=== PATIENT | female | born 1960 | race Caucasian/White ===

== ENCOUNTER → 2016-09-22 | Outpatient (CLI) | payer OTHER ==
[~2016-09-22] MED LIST: CONTRAST GIVEN MC PRN; IOHEXOL 300 MG/ML 75 ML VIAL IV ONE
[2016-09-22 12:29] LABS: CREATININE 1.1 mg/dL (0.6-1.0); GFR 51.2
--- NOTE | 2016-09-22 14:34 | RAD ---
Indication hematuria. Urinary frequency and incontinence. Multiphase imaging through the abdomen and pelvis was performed. Initially a noncontrast examination of the abdomen and pelvis was performed. Subsequently portal venous phase imaging through the abdomen was performed and finally delayed images through the abdomen and pelvis (CT urogram). MIP images were generated and reviewed. 60 cc of Omnipaque 300 was administered intravenously. On the initial noncontrast images the adrenal glands appear unremarkable. No renal calculi are seen. There is no hydronephrosis on either side. There is no hydroureter or calcification seen along the course of either ureter. The portal venous phase images are essentially unremarkable. No renal mass is seen. Several parapelvic cysts are seen associated with both kidneys. The delayed images show no additional finding. Parapelvic cysts are again seen. The ureters appear normal. The bladder is incompletely distended but grossly normal. The lung bases are clear. The liver and spleen appear unremarkable. No pancreatic abnormality is seen. No acute finding is seen in the abdomen. No acute or significant finding is seen in the pelvis. There are degenerative changes in the lumbar spine. Postoperative changes with associated mesh are seen involving the ventral abdominal wall. IMPRESSION: No acute finding seen in the abdomen or pelvis. Parapelvic cysts otherwise essentially unremarkable kidneys. Unremarkable ureters. Incompletely distended urinary bladder. No gross abnormality seen PQRS Compliance Statement: One or more of the following individualized dose reduction techniques were utilized for this examination: 1. Automated exposure control 2. Adjustment of the mA and/or kV according to patient size 3. Use of iterative reconstruction technique
== END | disposition home or self-care (01) ==
LOC: CT 12:10
PROVIDERS: ATTEND Urology
DX: R31.9 Hematuria, unspecified (principal); N39.41 Urge incontinence
CPT/HCPCS: 36415; 74178; 82565; Q9967

== ENCOUNTER → 2018-02-14 | Outpatient (CLI) | payer OTHER ==
--- NOTE | 2018-02-14 15:07 | RAD ---
DATE: 02/14/2018 EXAM: DIGITAL SCREEN BILAT W/CAD HISTORY: Routine screening COMPARISON: None available This study was interpreted with the benefit of Computerized Aided Detection (CAD). Breast Density: SCATTERED The breast parenchyma shows scattered fibroglandular densities. Breast parenchyma level B. FINDINGS: No suspicious breast densities are seen. Minimal benign type calcifications are noted. No suspicious microcalcifications are identified. IMPRESSION: There is no mammographic evidence of malignancy in either breast. BI-RADS CATEGORY: 2 BENIGN FINDING(S) RECOMMENDED FOLLOW-UP: 12M 12 MONTH FOLLOW-UP PQRS compliance statement: Patient information was entered into a reminder system with a target due date for the next mammogram. Mammography is a sensitive method for finding small breast cancers, but it does not detect them all and is not a substitute for careful clinical examination. A negative mammogram does not negate a clinically suspicious finding and should not result in delay in biopsying a clinically suspicious abnormality. "Our facility is accredited by the [employer] Mammography Program."
== END | disposition home or self-care (01) ==
LOC: MAMMO 14:02
PROVIDERS: ATTEND Family Medicine
DX: Z12.31 Encounter for screening mammogram for malignant neoplasm of breast (principal)
CPT/HCPCS: 77067

== ENCOUNTER 2018-03-27 19:06 | Emergency (ER) | payer OTHER ==
[~2018-03-27] VITALS: Ht 154.9 cm; Wt 127.0 kg
[2018-03-27] MEDS ORDERED: MELO7.5T5 PO (20:10)
--- NOTE | 2018-03-27 20:10 | PHYS DOC ---
Past Medical History Past Medical History: Bronchitis, COPD, Hypertension Past Surgical History: Appendectomy, Cholecystectomy, Tonsillectomy Additional Past Surgical Histo: BOWEL SX, CARPAL TUNNEL Alcohol Use: None Drug Use: None Adult General Chief Complaint Chief Complaint: LOWER EXT PAIN [facility] HPI Patient is a 58 year old female who presents with right knee pain. The patient denies injury. The patient states that she has a shower chair and did tip forward on the shower chair couple of days ago but denies falling. She states that she has chronic knee pain. She does walk with a cane. She states that this pain is just more increased than normal. Review of Systems Review of Systems Constitutional: Denies fever or chills [] Respiratory: Denies cough or shortness of breath [] Cardiovascular: No additional information not addressed in HPI [] GI: Denies abdominal pain, nausea, vomiting, bloody stools or diarrhea [] : Denies dysuria or hematuria [] Musculoskeletal: See history of present illness Integument: Denies rash or skin lesions [] Neurologic: Denies headache, focal weakness or sensory changes [] Endocrine: Denies polyuria or polydipsia [] All other systems were reviewed and found to be within normal limits, except as documented in this note. Allergies Allergies Allergies Coded Allergies Type Severity Reaction Last Updated Verified metronidazole Allergy Intermediate 09/22/16 Yes Physical Exam Physical Exam Constitutional: Well developed, well nourished, no acute distress, non-toxic appearance. [] Cardiovascular:Heart rate regular rhythm, no murmur [] Lungs & Thorax: Bilateral breath sounds clear to auscultation [] Abdomen: Bowel sounds normal, soft, no tenderness, no masses, no pulsatile masses. [] Skin: Warm, dry, no erythema, no rash. [] Back: No tenderness, no CVA tenderness. [] Extremities: right knee tenderness to palpation, no cyanosis, no clubbing, ROM intact, no edema or ecchymosis, pulses and sensation are intact distal to injury. [] Neurologic: Alert and oriented X 3, normal motor function, normal sensory function, no focal deficits noted. [] Psychologic: Affect normal, judgement normal, mood normal. [] Current Patient Data Vital Signs Vital Signs Date Time Temp Pulse Resp B/P (MAP) Pulse Ox O2 Delivery O2 Flow Rate FiO2 03/27/18 21:13 88 149/79 (102) 97 Room Air 03/27/18 19:06 97.9 18 97.9 EKG EKG [] Radiology/Procedures Radiology/Procedures [] PATIENT: LISHA HERR ACCOUNT: [id number] : 1960 LOCATION: ER AGE: 58 SEX: F EXAM STATUS: REG ER ORD. PHYSICIAN: ARABELLA SCHUSTER APRN REASON: pain x 1 day PROCEDURE: KNEE RIGHT 3V 3 views right knee dated 03/27/2018. No comparison available. Clinical data indication: Pain for week recent fall. FINDINGS: 3 views right knee show normal bony alignment. No displaced fracture. No acute osseous or articular abnormality. Moderate tricompartmental hypertrophic change with asymmetric medial joint space narrowing. No joint effusion or loose body. IMPRESSION: 1. No acute radiographic abnormality. 2. Moderate tricompartmental DJD. Electronically signed by: Toni Elizabeth MD (03/27/2018 8:31 PM) [facility] DICTATED and SIGNED BY: TONI ELIZABETH MD DATE: 03/27/182023 Course & Med Decision Making Course & Med Decision Making Pertinent Labs and Imaging studies reviewed. (See chart for details) [] Renae Disclaimer Renae Disclaimer This electronic medical record was generated, in whole or in part, using a voice recognition dictation system. Departure Departure Impression: Primary Impression: Osteoarthritis Disposition: 01 HOME, SELF-CARE Condition: STABLE Referrals: JANAY LORA MD (PCP) Patient Instructions: Osteoarthritis Additional Instructions: Take the medication with food. Follow-up with your primary care provider for recheck in 3 days if not improving or for possible referral to orthopedics. Scripts Meloxicam (MOBIC) 7.5 Mg Tablet 1 TAB PO DAILY for pain, #15 TAB 1 Refill Prov: ARABELLA SCHUSTER APRN 03/27/18 ARABELLA SCHUSTER APRN Mar 27, 2018 20:10
--- NOTE | 2018-03-27 20:34 | RAD ---
3 views right knee dated 03/27/2018. No comparison available. Clinical data indication: Pain for week recent fall. FINDINGS: 3 views right knee show normal bony alignment. No displaced fracture. No acute osseous or articular abnormality. Moderate tricompartmental hypertrophic change with asymmetric medial joint space narrowing. No joint effusion or loose body. IMPRESSION: 1. No acute radiographic abnormality. 2. Moderate tricompartmental DJD. Electronically signed by: Toni Elizabeth MD (03/27/2018 8:31 PM) [facility]
[2018-03-27 21:13] VITALS: BP 149/79
== END 2018-03-27 21:16 | disposition home or self-care (01) ==
LOC: ER 19:06
DX: M17.11 Unilateral primary osteoarthritis, right knee (principal); G89.29 Other chronic pain; J44.9 Chronic obstructive pulmonary disease, unspecified; I10 Essential (primary) hypertension; Z88.8 Allergy status to other drugs, medicaments and biological substances
CPT/HCPCS: 73562; 99284

== ENCOUNTER 2018-04-06 01:39 | Emergency (ER) | payer OTHER ==
[~2018-04-06] VITALS: Ht 152.4 cm; Wt 127.0 kg
[~2018-04-06 01:39] MED LIST changes: -CONTRAST GIVEN MC PRN; -IOHEXOL 300 MG/ML 75 ML VIAL IV ONE; +MELO7.5T5 PO
[2018-04-06 02:06] LABS: BASO # 0.1 x10^3/uL (0.0-0.2); BASO % 1 % (0-3); EOS # 0.1 x10^3/uL (0.0-0.7); EOS % 1 % (0-3); HEMATOCRIT 36.5 % (36.0-47.0); HEMOGLOBIN 12.5 g/dL (12.0-15.5); LYMPH # 1.6 x10^3/uL (1.0-4.8); LYMPH % 14 % (24-48); MEAN CORPUSCULAR HEMOGLOBIN 30 pg (25-35); MEAN CORPUSCULAR HGB CONC 34 g/dL (31-37); MEAN CORPUSCULAR VOLUME 86 fL (79-100); MONO # 0.5 x10^3/uL (0.0-1.1); MONO % 4 % (0-9); NEUT # 8.7 x10^3uL (1.8-7.7); NEUT % 80 % (31-73); PLATELET COUNT 235 x10^3/uL (140-400); RED BLOOD COUNT 4.23 x10^6/uL (3.50-5.40); RED CELL DISTRIBUTION WIDTH 14.3 % (11.5-14.5); WHITE BLOOD COUNT 10.9 x10^3/uL (4.0-11.0)
[2018-04-06 02:19] LABS: BILIRUBIN,URINE SMALL (NEG); CLARITY,URINE CLEAR; COLOR,URINE AMBER; NITRITE,URINE NEGATIVE (NEG); PROTEIN,URINE >=300 mg/dL (NEG-TRACE)
[2018-04-06 02:21] LABS: CALCIUM 9.4 mg/dL (8.5-10.1); CREATININE 1.4 mg/dL (0.6-1.0); GFR 38.5; POTASSIUM 3.7 mmol/L (3.5-5.1)
[2018-04-06 02:24] LABS: BACTERIA,URINE MANY /HPF (0-FEW); SQUAMOUS EPITHELIAL CELL,UR MOD /LPF
[2018-04-06 02:26] LABS: ALBUMIN 3.6 g/dL (3.4-5.0); ALBUMIN/GLOBULIN RATIO 0.8 (1.0-1.7); TOTAL BILIRUBIN 0.4 mg/dL (0.2-1.0); TOTAL PROTEIN 7.9 g/dL (6.4-8.2)
[2018-04-06 02:26] LABS: YEAST,URINE PRESENT /HPF
[2018-04-06] MEDS ORDERED: FAMOTIDINE 20 MG/2 ML VIAL IVP ONE (02:30)
[2018-04-06] MEDS ORDERED: ONDANSETRON PF 4 MG/2 ML VIAL. IV ONE (02:30)
[2018-04-06] MEDS ORDERED: IV NORMAL SALINE 1000ML BAG 1,000 ML IV ONE ×2 (02:30)
[2018-04-06] MEDS ORDERED: FLUC150T PO (02:41)
[2018-04-06] MEDS ORDERED: ONDA4TAB12 PO (02:41)
[2018-04-06] MEDS ORDERED: FAMO-63 PO (02:41)
--- NOTE | 2018-04-06 02:41 | PHYS DOC ---
Past Medical History Past Medical History: Bronchitis, COPD, Hypertension Past Surgical History: Appendectomy, Cholecystectomy, Tonsillectomy Additional Past Surgical Histo: BOWEL SX, CARPAL TUNNEL Alcohol Use: None Drug Use: None Adult General Chief Complaint Chief Complaint: NAUSEA/VOMITING/DIARRHA HPI HPI Patient is a 58 year old [f__sex] who presents with [] Review of Systems Review of Systems Constitutional: Denies fever or chills [] Eyes: Denies change in visual acuity, redness, or eye pain [] HENT: Denies nasal congestion or sore throat [] Respiratory: Denies cough or shortness of breath [] Cardiovascular: No additional information not addressed in HPI [] GI: Denies abdominal pain, nausea, vomiting, bloody stools or diarrhea [] : Denies dysuria or hematuria [] Musculoskeletal: Denies back pain or joint pain [] Integument: Denies rash or skin lesions [] Neurologic: Denies headache, focal weakness or sensory changes [] Endocrine: Denies polyuria or polydipsia [] All other systems were reviewed and found to be within normal limits, except as documented in this note. Current Medications Current Medications Current Medications Medications (Trade) Dose Ordered Sig/Fermin Start Time Stop Time Status Last Admin Dose Admin Famotidine (Pepcid Vial) 20 mg 1X ONCE 04/06/18 02:30 04/06/18 02:31 DC 04/06/18 02:08 20 MG Fluconazole (Diflucan) 200 mg 1X ONCE 04/06/18 02:45 04/06/18 02:46 UNV Ondansetron HCl (Zofran) 4 mg 1X ONCE 04/06/18 02:30 04/06/18 02:31 DC 04/06/18 02:08 4 MG Sodium Chloride 1,000 ml @ 1,000 mls/hr 1X ONCE 04/06/18 02:30 04/06/18 03:29 Allergies Allergies Allergies Coded Allergies Type Severity Reaction Last Updated Verified metronidazole Allergy Intermediate 09/22/16 Yes Physical Exam Physical Exam Constitutional: Well developed, well nourished, no acute distress, non-toxic appearance. [] HENT: Normocephalic, atraumatic, bilateral external ears normal, oropharynx moist, no oral exudates, nose normal. [] Eyes: PERRLA, EOMI, conjunctiva normal, no discharge. [] Neck: Normal range of motion, no tenderness, supple, no stridor. [] Cardiovascular:Heart rate regular rhythm, no murmur [] Lungs & Thorax: Bilateral breath sounds clear to auscultation [] Abdomen: Bowel sounds normal, soft, no tenderness, no masses, no pulsatile masses. [] Skin: Warm, dry, no erythema, no rash. [] Back: No tenderness, no CVA tenderness. [] Extremities: No tenderness, no cyanosis, no clubbing, ROM intact, no edema. [] Neurologic: Alert and oriented X 3, normal motor function, normal sensory function, no focal deficits noted. [] Psychologic: Affect normal, judgement normal, mood normal. [] Current Patient Data Vital Signs Vital Signs Date Time Temp Pulse Resp B/P (MAP) Pulse Ox O2 Delivery O2 Flow Rate FiO2 04/06/18 02:25 95 18 148/69 (95) 95 Room Air 04/06/18 01:53 97.7 97.7 Lab Values Laboratory Tests Test 04/06/18 01:50 04/06/18 02:02 White Blood Count 10.9 x10^3/uL (4.0-11.0) Red Blood Count 4.23 x10^6/uL (3.50-5.40) Hemoglobin 12.5 g/dL (12.0-15.5) Hematocrit 36.5 % (36.0-47.0) Mean Corpuscular Volume 86 fL (79-100) Mean Corpuscular Hemoglobin 30 pg (25-35) Mean Corpuscular Hemoglobin Concent 34 g/dL (31-37) Red Cell Distribution Width 14.3 % (11.5-14.5) Platelet Count 235 x10^3/uL (140-400) Neutrophils (%) (Auto) 80 % (31-73) H Lymphocytes (%) (Auto) 14 % (24-48) L Monocytes (%) (Auto) 4 % (0-9) Eosinophils (%) (Auto) 1 % (0-3) Basophils (%) (Auto) 1 % (0-3) Neutrophils # (Auto) 8.7 x10^3uL (1.8-7.7) H Lymphocytes # (Auto) 1.6 x10^3/uL (1.0-4.8) Monocytes # (Auto) 0.5 x10^3/uL (0.0-1.1) Eosinophils # (Auto) 0.1 x10^3/uL (0.0-0.7) Basophils # (Auto) 0.1 x10^3/uL (0.0-0.2) Sodium Level 140 mmol/L (136-145) Potassium Level 3.7 mmol/L (3.5-5.1) Chloride Level 103 mmol/L (98-107) Carbon Dioxide Level 25 mmol/L (21-32) Anion Gap 12 (6-14) Blood Urea Nitrogen 16 mg/dL (7-20) Creatinine 1.4 mg/dL (0.6-1.0) H Estimated GFR (Cockcroft-Gault) 38.5 BUN/Creatinine Ratio 11 (6-20) Glucose Level 151 mg/dL (70-99) H Calcium Level 9.4 mg/dL (8.5-10.1) Total Bilirubin 0.4 mg/dL (0.2-1.0) Aspartate Amino Transferase (AST) 15 U/L (15-37) Alanine Aminotransferase (ALT) 16 U/L (14-59) Alkaline Phosphatase 101 U/L (46-116) Total Protein 7.9 g/dL (6.4-8.2) Albumin 3.6 g/dL (3.4-5.0) Albumin/Globulin Ratio 0.8 (1.0-1.7) L Lipase 156 U/L (73-393) Urine Collection Type Unknown Urine Color Haylee Urine Clarity Clear Urine pH 5.0 Urine Specific [place] >=1.030 Urine Protein >=300 mg/dL (NEG-TRACE) Urine Glucose (UA) Negative mg/dL (NEG) Urine Ketones (Stick) Negative mg/dL (NEG) Urine Blood Small (NEG) Urine Nitrite Negative (NEG) Urine Bilirubin Small (NEG) Urine Urobilinogen Dipstick 1.0 mg/dL (0.2 mg/dL) Urine Leukocyte Esterase Negative (NEG) Urine RBC 1-2 /HPF (0-2) Urine WBC 1-4 /HPF (0-4) Urine Squamous Epithelial Cells Mod /LPF Urine Bacteria Many /HPF (0-FEW) Urine Mucus Mod /LPF Urine Yeast Present /HPF Laboratory Tests 04/06/18 01:50 Laboratory Tests 04/06/18 01:50 EKG EKG [] Radiology/Procedures Radiology/Procedures [] Course & Med Decision Making Course & Med Decision Making Pertinent Labs and Imaging studies reviewed. (See chart for details) [] Dragon Disclaimer Dragon Disclaimer This electronic medical record was generated, in whole or in part, using a voice recognition dictation system. Departure Departure Impression: Primary Impression: Nausea vomiting and diarrhea Additional Impression: Yeast cystitis Disposition: HOME, SELF-CARE Condition: IMPROVED Referrals: JANAY LORA MD (PCP) Patient Instructions: Trang Infection, Adult, Diarrhea, [id number], Diet for Diarrhea, Adult, Nausea and Vomiting, [id number] Scripts Fluconazole (DIFLUCAN) 150 Mg Tablet 1 TAB PO ONCE, #1 TAB 0 Refills Take dose in 1 week if symptoms continue. Prov: JHONNY SON DO 04/06/18 Famotidine (PEPCID) 20 Mg Tablet 20 MG PO BID, #14 TAB Prov: JHONNY SON DO 04/06/18 Ondansetron (ONDANSETRON ODT) 4 Mg Tab.rapdis 1 TAB PO PRN Q6-8HRS for VOMITING, #16 TAB Prov: JHONNY SON DO 04/06/18 Problem Qualifiers JHONNY SON DO Apr 06, 2018 02:41
[2018-04-06] MEDS ORDERED: FLUCONAZOLE 100 MG TABLET. PO ONE (03:00)
[2018-04-06 03:10] VITALS: BP 141/78
== END 2018-04-06 03:15 | disposition home or self-care (01) ==
LOC: ER 01:39
DX: B37.41 Candidal cystitis and urethritis (principal); R11.2 Nausea with vomiting, unspecified; R19.7 Diarrhea, unspecified; J44.9 Chronic obstructive pulmonary disease, unspecified; I10 Essential (primary) hypertension; Z88.8 Allergy status to other drugs, medicaments and biological substances
CPT/HCPCS: 36415; 80053; 81001; 83690; 85025; 87086; 96361; 96374; 96375; 99283; J2405; J3490; J7030

== ENCOUNTER → 2018-11-08 | Outpatient (CLI) | payer OTHER ==
[~2018-11-08] MED LIST changes: +FAMO-63 PO; +FLUC150T PO; +ONDA4TAB12 PO
--- NOTE | 2018-11-08 14:23 | RAD ---
MRI of the lumbar spine without contrast 11/08/2018 CLINICAL HISTORY: Low back pain with bilateral leg weakness. TECHNIQUE: Unenhanced T1-weighted and T2-weighted sagittal and axial and inversion recovery sagittal images of the lumbar spine were obtained. FINDINGS: Minimal S-shaped curvature of the thoracolumbar spine is seen. Degenerative signal changes are seen involving all of the disks of the lumbar spine. Degenerative signal changes are seen within the marrow surrounding these discs. The conus medullaris is normal morphology, position, and signal characteristics. At the L1-2 disc space there is a mild to moderate generalized disc bulge. Degenerative changes are seen involving the facet joints bilaterally. There is mild ligamentum flavum hypertrophy bilaterally. There is prominence of the posterior epidural fat. These findings when combined do not result in significant central spinal canal or neural foraminal stenosis. At the L2-3 disc space there is a mild to moderate generalized disc bulge. This is eccentric to the left. Degenerative changes are seen involving the facet joints bilaterally. There is mild ligamentum flavum hypertrophy bilaterally. There is prominence of the posterior epidural fat. There is a small right facet joint effusion. These findings when combined result in mild to moderate central spinal canal stenosis. No neural foraminal stenosis is seen. At the L3-4 disc space there is a mild generalized disc bulge. Degenerative changes are seen involving the facet joints bilaterally. There is mild ligamentum flavum hypertrophy bilaterally. There is prominence of the posterior epidural fat. These findings when combined result in mild central spinal canal stenosis. No neural foraminal stenosis is seen. At the L4-5 disc space there is a mild generalized disc bulge. Superimposed on this disc bulge is a right paracentral focal disc protrusion. This measures 3.5 mm in AP diameter. Degenerative changes are seen involving the facet joints, right greater than left. There is mild to moderate ligamentum flavum hypertrophy bilaterally. There is prominence of the posterior epidural fat. These findings when combined result in mild to moderate right greater than left central spinal canal stenosis. Mild right neural foraminal stenosis is seen. The left neural foramen is patent. At the L5-S1 disc space there is a mild to moderate generalized disc bulge. This is eccentric to the left. Degenerative changes are seen involving the facet joints bilaterally. There is mild ligamentum flavum hypertrophy bilaterally. These findings when combined result in mild central spinal canal stenosis. Mild bilateral neural foraminal stenosis is seen. IMPRESSION: The changes of degenerative disc disease are seen throughout the lumbar spine. These findings result in mild to moderate central spinal canal stenosis at L2-3, mild central spinal canal stenosis at L3-4 and L5-S1 and mild to moderate right greater than left central spinal canal stenosis at L4-5. Mild right neural foraminal stenosis is seen at L4-5. Mild bilateral neural foraminal stenosis is seen at L5-S1. Electronically signed by: Carlos Hoff MD (11/08/2018 2:21 PM) [facility]
== END | disposition home or self-care (01) ==
LOC: MRI 14:39
PROVIDERS: ATTEND Family Medicine
DX: M51.36 Other intervertebral disc degeneration, lumbar region (principal); M48.07 Spinal stenosis, lumbosacral region; M51.27 Other intervertebral disc displacement, lumbosacral region; M47.817 Spondylosis without myelopathy or radiculopathy, lumbosacral region; M43.8X5 Other specified deforming dorsopathies, thoracolumbar region; M89.38 Hypertrophy of bone, other site
CPT/HCPCS: 72148

== ENCOUNTER 2019-01-22 20:40 | Emergency (ER) | payer OTHER ==
[~2019-01-22] VITALS: Ht 149.9 cm; Wt 127.0 kg
[2019-01-22 20:58] VITALS: BP 163/66
--- NOTE | 2019-01-22 21:00 | PHYS DOC ---
Past Medical History Past Medical History: Bronchitis, COPD, Hypertension, Sciatica Past Surgical History: Appendectomy, Cholecystectomy, Tonsillectomy Additional Past Surgical Histo: BOWEL SX, CARPAL TUNNEL Alcohol Use: None Drug Use: None Adult General Chief Complaint Chief Complaint: HIP PAIN HPI HPI Patient is a 59 year old female with a history of COPD, bronchitis, hypertension, sciatica, who presents today complaining of 7 out of 10 left hip pain that began today when she was walking. She states the pain originates from her back into the hip into the left lower extremity. She states the pain is worse when she is walking. Denies any injury. Denies any loss of bowel bladder function. She states she has been seen by her own doctor for this pain before, she states they did an MRI of her lumbar spine which showed she had disc issues as well as sciatica. She states she is supposed to follow-up with the specialist next week for injections but she does not have anything for pain at home. Review of Systems Review of Systems Constitutional: Denies fever or chills [] Musculoskeletal: Reports left low back pain radiating to the left lower extremity, reports left hip pain. Integument: Denies rash or skin lesions [] Neurologic: Denies headache, focal weakness or sensory changes [] All other systems were reviewed and found to be within normal limits, except as documented in this note. Current Medications Current Medications Current Medications Medications (Trade) Dose Ordered Sig/Fermin Start Time Stop Time Status Last Admin Dose Admin Acetaminophen/ Hydrocodone Bitart (Lortab 5/325) 2 tab 1X ONCE 01/22/19 21:15 01/22/19 21:16 Cyclobenzaprine HCl (Flexeril) 10 mg 1X ONCE 01/22/19 21:15 01/22/19 21:16 Naproxen (Naprosyn) 500 mg 1X ONCE 01/22/19 21:15 01/22/19 21:16 Allergies Allergies Allergies Coded Allergies Type Severity Reaction Last Updated Verified metronidazole Allergy Intermediate 09/22/16 Yes Physical Exam Physical Exam Constitutional: Well developed, well nourished, no acute distress, non-toxic appearance. [] Skin: Warm, dry, no erythema, no rash. [] Back: Tenderness on palpation of the left SI joint, no midline lumbar spine tenderness, no CVA tenderness. [] Extremities: Morbidly obese patient. No tenderness, no cyanosis, no clubbing, ROM intact, no edema. [] Neurologic: Alert and oriented X 3, normal motor function, normal sensory function, no focal deficits noted. [] Psychologic: Affect normal, judgement normal, mood normal. [] EKG EKG [] Radiology/Procedures Radiology/Procedures [] Course & Med Decision Making Course & Med Decision Making Pertinent Labs and Imaging studies reviewed. (See chart for details) This is a 59-year-old female patient who presents to the ED today complaining of left hip pain radiating to the left lower extremity. No known injury. Patient has history of sciatica. She has not called her a quick no syndrome symptoms. She is scheduled to have injections to her spine next week. Prescription pain medicine provided, follow-up with her own doctor next week. Dragon Disclaimer Dragon Disclaimer This electronic medical record was generated, in whole or in part, using a voice recognition dictation system. Departure Departure Impression: Primary Impression: Left hip pain Additional Impression: Sciatica, left side Disposition: HOME, SELF-CARE Condition: STABLE Referrals: JANAY LORA MD (PCP) follow up next week Patient Instructions: Hip Pain, Sciatica with Rehab-Sports[facility] Additional Instructions: You were evaluated in the emergency room for hip pain. Please follow-up with your own doctor next week. Take the prescribed medicine as needed for pain. Scripts Cyclobenzaprine Hcl (CYCLOBENZAPRINE HCL) 10 Mg Tablet 1 TAB PO TID, #30 TAB Prov: AJCKSON BUSTILLO APRN 01/22/19 Hydrocodone/Apap 5-325 (NORCO 5-325 TABLET) 1 Each Tablet 1 TAB PO Q6HRS PRN for PAIN MDD 8, #12 TAB Prov: JACKSON BUSTILLO APRN 01/22/19 Problem Qualifiers JACKSON BUSTILLO APRN Jan 22, 2019 21:00
[2019-01-22] MEDS ORDERED: HYDR-3164 PO (21:05)
[2019-01-22] MEDS ORDERED: CYCL10TA2 PO (21:05)
[2019-01-22] MEDS: HYDROcodone/APAP 5/325MG 1 TAB TABLET PO ONE (21:11)
[2019-01-22] MEDS: NAPROXEN 500 MG TABLET PO ONE (21:11)
[2019-01-22] MEDS: CYCLOBENZAPRINE 10 MG TABLET. PO ONE (21:12)
--- NOTE | 2019-01-23 00:47 | RAD ---
HIP LEFT 2V WITH PELVIS DATE: 01/22/2019 12:00 AM INDICATION: Hip pain for one week, no injury COMPARISON: None. FINDINGS: Bones: There is no evidence of acute fracture or dislocation. Joints: The joint spaces are normal. Miscellaneous: None. IMPRESSION: No evidence of acute fracture. Electronically signed by: Ke Du MD (01/23/2019 12:44 AM) [id number]
== END 2019-01-22 21:50 | disposition home or self-care (01) ==
LOC: ER 20:40
DX: M25.552 Pain in left hip (principal); M54.42 Lumbago with sciatica, left side; J44.9 Chronic obstructive pulmonary disease, unspecified; I10 Essential (primary) hypertension; Z90.89 Acquired absence of other organs; Z90.49 Acquired absence of other specified parts of digestive tract; E66.01 Morbid (severe) obesity due to excess calories; Z68.43 Body mass index [BMI] 50.0-59.9, adult; Z88.8 Allergy status to other drugs, medicaments and biological substances
CPT/HCPCS: 73502; 99284

== ENCOUNTER → 2019-03-04 | Outpatient (CLI) | payer OTHER ==
[~2019-03-04] MED LIST changes: +CYCL10TA2 PO; +HYDR-3164 PO
--- NOTE | 2019-03-04 19:36 | RAD ---
DATE: 03/04/2019 EXAM: DIGITAL SCREEN BILAT W/CAD HISTORY: Routine screening COMPARISON: 02/24/2018 mammographic exam This study was interpreted with the benefit of Computerized Aided Detection (CAD). Breast Density: SCATTERED The breast parenchyma shows scattered fibroglandular densities. Breast parenchyma level B. FINDINGS: Small masses are stable bilaterally and multiple. No suspicious calcification, dominant mass, or distortion. IMPRESSION: Stable BI-RADS CATEGORY: 1 NEGATIVE RECOMMENDED FOLLOW-UP: 12M 12 MONTH FOLLOW-UP PQRS compliance statement: Patient information was entered into a reminder system with a target due date for the next mammogram. Mammography is a sensitive method for finding small breast cancers, but it does not detect them all and is not a substitute for careful clinical examination. A negative mammogram does not negate a clinically suspicious finding and should not result in delay in biopsying a clinically suspicious abnormality. "Our facility is accredited by the [employer] Mammography Program."
== END | disposition home or self-care (01) ==
LOC: MAMMO 14:15
PROVIDERS: ATTEND Family Medicine
DX: Z12.31 Encounter for screening mammogram for malignant neoplasm of breast (principal); N63.20 Unspecified lump in the left breast, unspecified quadrant; N63.10 Unspecified lump in the right breast, unspecified quadrant
CPT/HCPCS: 77067

== ENCOUNTER 2019-06-10 19:26 | Emergency (ER) | payer OTHER ==
[~2019-06-10] VITALS: Ht 149.9 cm; Wt 295.0 kg
[2019-06-10] MEDS ORDERED: IV NORMAL SALINE 1000ML BAG 1,000 ML IV SCH (20:25)
--- NOTE | 2019-06-10 20:25 | PHYS DOC ---
Past Medical History Past Medical History: Bronchitis, COPD, Hypertension, Sciatica Past Surgical History: Appendectomy, Cholecystectomy, Tonsillectomy Additional Past Surgical Histo: BOWEL SX, CARPAL TUNNEL Alcohol Use: None Drug Use: None Adult General Chief Complaint Chief Complaint: COUGH HPI HPI 59-year-old female with underlying history of COPD, hypertension presents to the emergency department with complaints of cough, left side pain, fever, chills. She describes blood in her urine 2 days however no urinary symptoms. Nothing makes her symptoms worse, nothing makes her symptoms better. Patient has a headache, visual change, abdominal pain, nausea or vomiting. Review of Systems Review of Systems Constitutional: + fever/chills HENT: Denies nasal congestion or sore throat [] Respiratory: cough/SOB Cardiovascular: No additional information not addressed in HPI [] GI: Denies abdominal pain, nausea, vomiting, bloody stools or diarrhea [] : Denies dysuria, + hematuria] Musculoskeletal:left flank pain Integument: Denies rash or skin lesions [] Neurologic: Denies headache, focal weakness or sensory changes [] Endocrine: Denies polyuria or polydipsia [] All other systems were reviewed and found to be within normal limits, except as documented in this note. Current Medications Current Medications Current Medications Medications (Trade) Dose Ordered Sig/Fermin Start Time Stop Time Status Last Admin Dose Admin Albuterol/ Ipratropium (Duoneb) 3 ml 1X ONCE 06/10/19 20:30 06/10/19 20:31 DC 06/10/19 20:55 3 ML Ceftriaxone Sodium (Rocephin) 1 gm 1X ONCE 06/10/19 22:15 06/10/19 22:16 DC 06/10/19 22:17 1 GM Sodium Chloride 1,000 ml @ 1,000 mls/hr 1X ONCE 06/10/19 22:30 06/10/19 23:29 06/10/19 22:33 1,000 MLS/HR Allergies Allergies Allergies Coded Allergies Type Severity Reaction Last Updated Verified metronidazole Allergy Intermediate 09/22/16 Yes Physical Exam Physical Exam Constitutional: Well developed, well nourished, no acute distress, non-toxic appearance. [] HENT: Normocephalic, atraumatic, bilateral external ears normal, oropharynx moist, no oral exudates, nose normal. [] Eyes: PERRLA, EOMI, conjunctiva normal, no discharge. [] Neck: Normal range of motion, no tenderness, supple, no stridor. [] Cardiovascular:Heart rate regular rhythm, no murmur [] Lungs & Thorax: Bilateral breath sounds clear to auscultation [] Abdomen: Bowel sounds normal, soft, no tenderness, no masses, no pulsatile masses. [] Skin: Warm, dry, no erythema, no rash. [] Back: No tenderness, no CVA tenderness. [] Extremities: No tenderness, no cyanosis, no clubbing, ROM intact, no edema. [] Neurologic: Alert and oriented X 3, normal motor function, normal sensory function, no focal deficits noted. [] Psychologic: Affect normal, judgement normal, mood normal. [] Current Patient Data Vital Signs Vital Signs Date Time Temp Pulse Resp B/P (MAP) Pulse Ox O2 Delivery O2 Flow Rate FiO2 06/10/19 23:12 116 25 145/97 (113) 96 Room Air 06/10/19 19:30 99.2 99.2 Lab Values Laboratory Tests Test 06/10/19 20:30 06/10/19 20:40 06/10/19 21:00 Urine Collection Type Unknown Urine Color Yellow Urine Clarity Clear Urine pH 6.0 Urine Specific [place] 1.010 Urine Protein 100 mg/dL (NEG-TRACE) Urine Glucose (UA) Negative mg/dL (NEG) Urine Ketones (Stick) Negative mg/dL (NEG) Urine Blood Small (NEG) Urine Nitrite Negative (NEG) Urine Bilirubin Negative (NEG) Urine Urobilinogen Dipstick 1.0 mg/dL (0.2 mg/dL) Urine Leukocyte Esterase Small (NEG) Urine RBC Occ /HPF (0-2) Urine WBC 11-20 /HPF (0-4) Urine Squamous Epithelial Cells Mod /LPF Urine Bacteria Many /HPF (0-FEW) Urine Mucus Slight /LPF White Blood Count 7.9 x10^3/uL (4.0-11.0) Red Blood Count 4.24 x10^6/uL (3.50-5.40) Hemoglobin 12.2 g/dL (12.0-15.5) Hematocrit 36.1 % (36.0-47.0) Mean Corpuscular Volume 85 fL (79-100) Mean Corpuscular Hemoglobin 29 pg (25-35) Mean Corpuscular Hemoglobin Concent 34 g/dL (31-37) Red Cell Distribution Width 14.7 % (11.5-14.5) H Platelet Count 198 x10^3/uL (140-400) Neutrophils (%) (Auto) 82 % (31-73) H Lymphocytes (%) (Auto) 10 % (24-48) L Monocytes (%) (Auto) 5 % (0-9) Eosinophils (%) (Auto) 1 % (0-3) Basophils (%) (Auto) 1 % (0-3) Neutrophils # (Auto) 6.5 x10^3/uL (1.8-7.7) Lymphocytes # (Auto) 0.8 x10^3/uL (1.0-4.8) L Monocytes # (Auto) 0.4 x10^3/uL (0.0-1.1) Eosinophils # (Auto) 0.1 x10^3/uL (0.0-0.7) Basophils # (Auto) 0.1 x10^3/uL (0.0-0.2) Sodium Level 141 mmol/L (136-145) Potassium Level 3.9 mmol/L (3.5-5.1) Chloride Level 102 mmol/L (98-107) Carbon Dioxide Level 27 mmol/L (21-32) Anion Gap 12 (6-14) Blood Urea Nitrogen 14 mg/dL (7-20) Creatinine 1.3 mg/dL (0.6-1.0) H Estimated GFR (Cockcroft-Gault) 41.8 BUN/Creatinine Ratio 11 (6-20) Glucose Level 109 mg/dL (70-99) H Calcium Level 9.4 mg/dL (8.5-10.1) Total Bilirubin 0.5 mg/dL (0.2-1.0) Aspartate Amino Transferase (AST) 27 U/L (15-37) Alanine Aminotransferase (ALT) 18 U/L (14-59) Alkaline Phosphatase 123 U/L (46-116) H Total Protein 7.5 g/dL (6.4-8.2) Albumin 3.6 g/dL (3.4-5.0) Albumin/Globulin Ratio 0.9 (1.0-1.7) L Lactic Acid Level 1.3 mmol/L (0.4-2.0) Laboratory Tests 06/10/19 20:40 Laboratory Tests 06/10/19 20:40 EKG EKG EKG interpretation time 1933, sinus tachycardia, left axis deviation, no evidence of ST elevation [place][] Radiology/Procedures Radiology/Procedures [facility] [address] [place] [address] IMAGING REPORT Signed PATIENT: LISHA HUSSEIN ACCOUNT: [id number] : 1960 LOCATION: ER AGE: 59 SEX: F EXAM STATUS: REG ER ORD. PHYSICIAN: BRISEIDA REAVES MD REASON: Cough/Fever PROCEDURE: PORTABLE CHEST 1V PORTABLE CHEST 1V History: Cough. Fever. Comparison: None. Findings: No consolidation or pleural effusion. Normal heart size. No pneumothorax. Calcified right upper lung granuloma. Impression: 1. No acute cardiopulmonary process. Electronically signed by: Serge Young DO (06/10/2019 8:39 PM) [facility] DICTATED and SIGNED BY: SERGE YOUNG DO DATE: 06/10/192038 [] Course & Med Decision Making Course & Med Decision Making Pertinent Labs and Imaging studies reviewed. (See chart for details) []59-year-old female with underlying history of COPD, hypertension presents to the emergency department with complaints of cough, left side pain, fever, c hills. She describes blood in her urine 2 days however no urinary symptoms. Nothing makes her symptoms worse, nothing makes her symptoms better. Patient has a headache, visual change, abdominal pain, nausea or vomiting. Labs and imaging reviewed, chest x-ray reveals no evidence of acute cardiac pu lmonary process Urinalysis reveals urinary tract infection, lactic acid is 1.3 Blood cell count within normal limits 7.9 She received IV fluids 2 L, Rocephin 1 g IV Recommend discharge home follow up with her primary care physician as an outpatient Return precautions provided Dragon Disclaimer Dragon Disclaimer This electronic medical record was generated, in whole or in part, using a voice recognition dictation system. Departure Departure Impression: Primary Impression: UTI (urinary tract infection) Additional Impression: Fever Disposition: HOME, SELF-CARE Condition: IMPROVED Referrals: JANAY LORA MD (PCP) Patient Instructions: Urinary Tract Infection, [id number] Additional Instructions: Recommend follow up with PCP 3 - 5 days Return to the ER with worsening symptoms, intractable pain, fever, altered mental status Tylenol/Motrin as needed for pain Take antibiotics as directed Chest xray without findings of infection Scripts Cephalexin (KEFLEX) 500 Mg Capsule 2 CAP PO Q12HR for 5 Days, #20 CAP Prov: BRISEIDA REAVES MD 06/10/19 Problem Qualifiers Primary Impression: UTI (urinary tract infection) Urinary tract infection type: site unspecified Hematuria presence: without hematuria Qualified Codes: N39.0 - Urinary tract infection, site not specified Additional Impression: Fever Fever type: unspecified Qualified Codes: R50.9 - Fever, unspecified BRISEIDA REAVES MD Jun 10, 2019 20:25
[2019-06-10] MEDS ORDERED: IPRATRPIUM/ALBUTEROL 0.5/2.5MG 3 ML NEBU. NEB ONE (20:30)
[2019-06-10 20:38] LABS: BILIRUBIN,URINE NEGATIVE (NEG); CLARITY,URINE CLEAR; COLOR,URINE YELLOW; NITRITE,URINE NEGATIVE (NEG); PROTEIN,URINE 100 mg/dL (NEG-TRACE)
--- NOTE | 2019-06-10 20:42 | RAD ---
PORTABLE CHEST 1V History: Cough. Fever. Comparison: None. Findings: No consolidation or pleural effusion. Normal heart size. No pneumothorax. Calcified right upper lung granuloma. Impression: 1. No acute cardiopulmonary process. Electronically signed by: Serge Young DO (06/10/2019 8:39 PM) [facility]
[2019-06-10 20:43] LABS: BACTERIA,URINE MANY /HPF (0-FEW); RBC,URINE OCC /HPF (0-2); SQUAMOUS EPITHELIAL CELL,UR MOD /LPF
[2019-06-10 20:57] LABS: BASO # 0.1 x10^3/uL (0.0-0.2); BASO % 1 % (0-3); EOS # 0.1 x10^3/uL (0.0-0.7); EOS % 1 % (0-3); HEMATOCRIT 36.1 % (36.0-47.0); HEMOGLOBIN 12.2 g/dL (12.0-15.5); LYMPH # 0.8 x10^3/uL (1.0-4.8); LYMPH % 10 % (24-48); MEAN CORPUSCULAR HEMOGLOBIN 29 pg (25-35); MEAN CORPUSCULAR HGB CONC 34 g/dL (31-37); MEAN CORPUSCULAR VOLUME 85 fL (79-100); MONO # 0.4 x10^3/uL (0.0-1.1); MONO % 5 % (0-9); NEUT # 6.5 x10^3/uL (1.8-7.7); NEUT % 82 % (31-73); PLATELET COUNT 198 x10^3/uL (140-400); RED BLOOD COUNT 4.24 x10^6/uL (3.50-5.40); RED CELL DISTRIBUTION WIDTH 14.7 % (11.5-14.5); WHITE BLOOD COUNT 7.9 x10^3/uL (4.0-11.0)
[2019-06-10 21:10] LABS: CALCIUM 9.4 mg/dL (8.5-10.1); CREATININE 1.3 mg/dL (0.6-1.0); GFR 41.8; POTASSIUM 3.9 mmol/L (3.5-5.1)
[2019-06-10 21:13] LABS: ALBUMIN 3.6 g/dL (3.4-5.0); ALBUMIN/GLOBULIN RATIO 0.9 (1.0-1.7); TOTAL BILIRUBIN 0.5 mg/dL (0.2-1.0); TOTAL PROTEIN 7.5 g/dL (6.4-8.2)
[2019-06-10] MEDS ORDERED: cefTRIAXone IV Push 1 GM VIAL. IVP ONE (22:15)
[2019-06-10] MEDS ORDERED: IV NORMAL SALINE 1000ML BAG 1,000 ML IV ONE (22:30)
[2019-06-10 23:12] VITALS: BP 145/97
[2019-06-10] MEDS ORDERED: CEPH-264 PO (23:18)
--- NOTE | 2019-06-11 07:13 | EKG ---
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
== END 2019-06-10 23:46 | disposition home or self-care (01) ==
LOC: ER 19:26
DX: N39.0 Urinary tract infection, site not specified (principal); R31.9 Hematuria, unspecified; R50.9 Fever, unspecified; R10.9 Unspecified abdominal pain; R11.2 Nausea with vomiting, unspecified; J44.9 Chronic obstructive pulmonary disease, unspecified; I10 Essential (primary) hypertension; Z90.89 Acquired absence of other organs; Z90.49 Acquired absence of other specified parts of digestive tract; Z98.890 Other specified postprocedural states
CPT/HCPCS: 36415; 71045; 80053; 81001; 83605; 85025; 87086; 93005; 94640; 96361; 96374; 99285; J0696; J7030; J7620; 87186

== ENCOUNTER 2019-12-28 11:05 | Emergency (ER) | payer OTHER ==
[~2019-12-28] VITALS: Ht 149.9 cm; Wt 145.0 kg
[~2019-12-28 11:05] MED LIST changes: +CEPH-264 PO
[2019-12-28] MEDS ORDERED: IV NORMAL SALINE 1000ML BAG 1,000 ML IV ONE (11:30)
[2019-12-28] MEDS ORDERED: MECLIZINE HCL 12.5 MG TABLET. PO ONE (11:30)
[2019-12-28 11:50] LABS: BASO % 1 % (0-3); EOS # 0.2 x10^3/uL (0.0-0.7); EOS % 3 % (0-3); HEMATOCRIT 32.1 % (36.0-47.0); HEMOGLOBIN 10.9 g/dL (12.0-15.5); LYMPH # 1.6 x10^3/uL (1.0-4.8); LYMPH % 27 % (24-48); MEAN CORPUSCULAR HEMOGLOBIN 30 pg (25-35); MEAN CORPUSCULAR HGB CONC 34 g/dL (31-37); MEAN CORPUSCULAR VOLUME 87 fL (79-100); MONO # 0.4 x10^3/uL (0.0-1.1); MONO % 7 % (0-9); NEUT # 3.8 x10^3/uL (1.8-7.7); NEUT % 62 % (31-73); PLATELET COUNT 186 x10^3/uL (140-400); RED CELL DISTRIBUTION WIDTH 14.3 % (11.5-14.5)
[2019-12-28 12:00] LABS: CALCIUM 9.2 mg/dL (8.5-10.1); GFR 56.6; POTASSIUM 4.6 mmol/L (3.5-5.1)
[2019-12-28 12:03] LABS: BILIRUBIN,URINE NEGATIVE (NEG); CLARITY,URINE CLEAR; COLOR,URINE YELLOW; NITRITE,URINE NEGATIVE (NEG); PROTEIN,URINE 100 mg/dL (NEG-TRACE)
[2019-12-28 12:06] LABS: ALBUMIN 3.1 g/dL (3.4-5.0); TOTAL BILIRUBIN 0.3 mg/dL (0.2-1.0); TOTAL PROTEIN 6.3 g/dL (6.4-8.2)
--- NOTE | 2019-12-28 12:18 | RAD ---
CT scan of the head without contrast 12/28/2019 Clinical History: Dizziness. Vertigo. Technique: Unenhanced, contiguous, 5 mm axial sections were obtained through the head. One or more of the following individualized dose reduction techniques were utilized for this study: 1. Automated exposure control. 2. Adjustment of the mA and/or kV according to patient size. 3. Use of iterative reconstruction technique. Findings: There is mild generalized parenchymal atrophy. No acute parenchymal abnormality is seen. No extra-axial fluid collection is noted. No skull fracture is seen. Impression: No acute intracranial abnormality is seen. Electronically signed by: Carlos Hoff MD (12/28/2019 12:15 PM) [id number]
[2019-12-28 12:22] LABS: BACTERIA,URINE MANY /HPF (0-FEW); RBC,URINE OCC /HPF (0-2); SQUAMOUS EPITHELIAL CELL,UR MANY /LPF
--- NOTE | 2019-12-28 12:27 | EKG ---
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
[2019-12-28] MEDS ORDERED: MECL-75 PO (12:33)
--- NOTE | 2019-12-28 12:33 | PHYS DOC ---
Past Medical History Past Medical History: Bronchitis, COPD, Diabetes-Type II, Hypertension, Sciatica Past Surgical History: Appendectomy, Cholecystectomy, Tonsillectomy Additional Past Surgical Histo: BOWEL SX, CARPAL TUNNEL Smoking Status: Never Smoker Alcohol Use: None Drug Use: None General Adult EDM: Chief Complaint: DIZZY/LIGHT HEADED HPI: HPI: Patient is a 59-year-old female with multiple medical problems who presents with a 3-day history of dizziness. She describes movement that causes the room to start spinning. She first noticed it while she was sitting in the kitchen a few days ago when the room slowly started to spin. She noticed it much more severe today anytime she moved her head. She denies any headache or lateralizing neurologic weakness. She denies any fever or neck pain. She denies any blurred or double vision. She states she has never had vertigo in the past. [] Review of Systems: Review of Systems: Constitutional: Denies fever or chills. [] Eyes: Denies change in visual acuity. [] HENT: Denies nasal congestion or sore throat. [] Respiratory: Denies cough or shortness of breath. [] Cardiovascular: Denies chest pain or edema. [] GI: Denies abdominal pain, nausea, vomiting, bloody stools or diarrhea. [] : Denies dysuria. [] Musculoskeletal: Denies back pain or joint pain. [] Integument: Denies rash. [] Neurologic: Reports dizziness [] Endocrine: Denies polyuria or polydipsia. [] Lymphatic: Denies swollen glands. [] Psychiatric: Denies depression or anxiety. [] Heart Score: Risk Factors: Risk Factors: DM, Current or recent (<one month) smoker, HTN, HLP, family history of CAD, obesity. Risk Scores: Score 0 - 3: 2.5% MACE over next 6 weeks - Discharge Home Score 4 - 6: 20.3% MACE over next 6 weeks - Admit for Clinical Observation Score 7 - 10: 72.7% MACE over next 6 weeks - Early Invasive Strategies Current Medications: Current Medications Medications (Trade) Dose Ordered Sig/Fermin Start Time Stop Time Status Last Admin Dose Admin Meclizine HCl (Antivert) 25 mg 1X ONCE 12/28/19 11:30 12/28/19 11:33 DC 12/28/19 12:20 25 MG Sodium Chloride 1,000 ml @ 1,000 mls/hr 1X ONCE 12/28/19 11:30 12/28/19 12:29 12/28/19 12:19 1,000 MLS/HR Allergies: Allergies: Allergies Coded Allergies Type Severity Reaction Last Updated Verified metronidazole Allergy Intermediate 09/22/16 Yes Physical Exam: PE: Constitutional: Well developed, well nourished, no acute distress, non-toxic appearance. [] HENT: Normocephalic, atraumatic, bilateral external ears normal, oropharynx moist, no oral exudates, nose normal. [] Eyes: PERRLA, EOMI, conjunctiva normal, no discharge. [] Neck: Normal range of motion, no tenderness, supple, no stridor. [] Cardiovascular:Heart rate regular rhythm, no murmur [] Lungs & Thorax: Bilateral breath sounds clear to auscultation [] Abdomen: Bowel sounds normal, soft, no tenderness, no masses, no pulsatile masses. [] Skin: Warm, dry, no erythema, no rash. [] Back: No tenderness, no CVA tenderness. [] Extremities: No tenderness, no cyanosis, no clubbing, ROM intact, no edema. [] Neurologic: Alert and oriented X 3, normal motor function, normal sensory function, no focal deficits noted. [] Psychologic: Affect normal, judgement normal, mood normal. [] Current Patient Data: Labs: Laboratory Tests Test 12/28/19 11:22 12/28/19 11:45 White Blood Count 6.0 x10^3/uL (4.0-11.0) Red Blood Count 3.70 x10^6/uL (3.50-5.40) Hemoglobin 10.9 g/dL (12.0-15.5) L Hematocrit 32.1 % (36.0-47.0) L Mean Corpuscular Volume 87 fL (79-100) Mean Corpuscular Hemoglobin 30 pg (25-35) Mean Corpuscular Hemoglobin Concent 34 g/dL (31-37) Red Cell Distribution Width 14.3 % (11.5-14.5) Platelet Count 186 x10^3/uL (140-400) Neutrophils (%) (Auto) 62 % (31-73) Lymphocytes (%) (Auto) 27 % (24-48) Monocytes (%) (Auto) 7 % (0-9) Eosinophils (%) (Auto) 3 % (0-3) Basophils (%) (Auto) 1 % (0-3) Neutrophils # (Auto) 3.8 x10^3/uL (1.8-7.7) Lymphocytes # (Auto) 1.6 x10^3/uL (1.0-4.8) Monocytes # (Auto) 0.4 x10^3/uL (0.0-1.1) Eosinophils # (Auto) 0.2 x10^3/uL (0.0-0.7) Basophils # (Auto) 0.0 x10^3/uL (0.0-0.2) Sodium Level 138 mmol/L (136-145) Potassium Level 4.6 mmol/L (3.5-5.1) Chloride Level 104 mmol/L (98-107) Carbon Dioxide Level 26 mmol/L (21-32) Anion Gap 8 (6-14) Blood Urea Nitrogen 15 mg/dL (7-20) Creatinine 1.0 mg/dL (0.6-1.0) Estimated GFR (Cockcroft-Gault) 56.6 BUN/Creatinine Ratio 15 (6-20) Glucose Level 197 mg/dL (70-99) H Calcium Level 9.2 mg/dL (8.5-10.1) Total Bilirubin 0.3 mg/dL (0.2-1.0) Aspartate Amino Transferase (AST) 29 U/L (15-37) Alanine Aminotransferase (ALT) 27 U/L (14-59) Alkaline Phosphatase 81 U/L (46-116) Troponin I Quantitative < 0.017 ng/mL (0.000-0.055) Total Protein 6.3 g/dL (6.4-8.2) L Albumin 3.1 g/dL (3.4-5.0) L Albumin/Globulin Ratio 1.0 (1.0-1.7) Urine Collection Type Void Urine Color Yellow Urine Clarity Clear Urine pH 5.0 (<5.0-8.0) Urine Specific [place] 1.015 (1.000-1.030) Urine Protein 100 mg/dL (NEG-TRACE) Urine Glucose (UA) Negative mg/dL (NEG) Urine Ketones (Stick) Negative mg/dL (NEG) Urine Blood Trace (NEG) Urine Nitrite Negative (NEG) Urine Bilirubin Negative (NEG) Urine Urobilinogen Dipstick 1.0 mg/dL (0.2 mg/dL) Urine Leukocyte Esterase Negative (NEG) Urine RBC Occ /HPF (0-2) Urine WBC 5-10 /HPF (0-4) Urine Squamous Epithelial Cells Many /LPF Urine Bacteria Many /HPF (0-FEW) Urine Mucus Marked /LPF Laboratory Tests 12/28/19 11:22 Laboratory Tests 12/28/19 11:22 Vital Signs: Vital Signs Date Time Temp Pulse Resp B/P (MAP) Pulse Ox O2 Delivery O2 Flow Rate FiO2 12/28/19 11:05 97.9 74 18 177/69 (105) 97 Room Air 97.9 EKG: EKG: EKG: Normal sinus rhythm rate of [address]-T changes [] Radiology/Procedures: Radiology/Procedures: []REASON: dizziness - vertigo PROCEDURE: CT HEAD WO CONTRAST CT scan of the head without contrast 12/28/2019 Clinical History: Dizziness. Vertigo. Technique: Unenhanced, contiguous, 5 mm axial sections were obtained through the head. One or more of the following individualized dose reduction techniques were utilized for this study: 1. Automated exposure control. 2. Adjustment of the mA and/or kV according to patient size. 3. Use of iterative reconstruction technique. Findings: There is mild generalized parenchymal atrophy. No acute parenchymal abnormality is seen. No extra-axial fluid collection is noted. No skull fracture is seen. Impression: No acute intracranial abnormality is seen. Course & Med Decision Making: Course & Med Decision Making Pertinent Labs and Imaging studies reviewed. (See chart for details) [ED course: Evaluation reveals a 59-year-old female with vertigo. She was given meclizine 25 mg in the emergency department which did help alleviate her symptoms. Her CT scan was negative. Her laboratory studies were essentially unremarkable. I will provide her with a prescription for meclizine to take at home. Furthermore, her urine appears contaminated to me I will not treat this.] Dragon Disclaimer: Dragon Disclaimer: This electronic medical record was generated, in whole or in part, using a voice recognition dictation system. Departure Departure Impression: Primary Impression: Vertigo Disposition: HOME, SELF-CARE Condition: IMPROVED Referrals: JANAY LORA MD (PCP) Patient Instructions: Benign Positional Vertigo, Vertigo Additional Instructions: Return to the emergency department with any new or concerning symptoms Scripts Meclizine Hcl (MECLIZINE HCL) 25 Mg Tablet 1 TAB PO Q8HRS PRN for dizziness, #30 TAB 30 Refills Prov: JUAN R LINDO DO 12/28/19 Justicifation of Admission Dx: Justifications for Admission: Justification of Admission Dx: No JUAN R LINDO DO Dec 28, 2019 12:33
[2019-12-28 12:46] VITALS: BP 115/68
== END 2019-12-28 13:00 | disposition home or self-care (01) ==
LOC: ER 11:05
DX: R42 Dizziness and giddiness (principal); J44.9 Chronic obstructive pulmonary disease, unspecified; E11.9 Type 2 diabetes mellitus without complications; I10 Essential (primary) hypertension; Z90.89 Acquired absence of other organs; Z90.49 Acquired absence of other specified parts of digestive tract; Z98.890 Other specified postprocedural states; Z88.8 Allergy status to other drugs, medicaments and biological substances
CPT/HCPCS: 36415; 70450; 80053; 81001; 84484; 85025; 87086; 93005; 96360; 99285; J7030; 87077; 87186; J8597

== ENCOUNTER 2020-02-23 02:55 | Emergency (ER) | payer OTHER ==
[~2020-02-23] VITALS: Ht 149.9 cm; Wt 145.0 kg
[~2020-02-23 02:55] MED LIST changes: +MECL-75 PO
[2020-02-23 03:00] VITALS: BP 139/63
--- NOTE | 2020-02-23 03:24 | PHYS DOC ---
Past Medical History Past Medical History: Bronchitis, COPD, Diabetes-Type II, Hypertension, S ciatica Past Surgical History: Appendectomy, Cholecystectomy, Tonsillectomy Additional Past Surgical Histo: BOWEL SX, CARPAL TUNNEL Smoking Status: Never Smoker Alcohol Use: None Drug Use: None General Adult EDM: Chief Complaint: UPPER EXTREMITY PAIN HPI: HPI: Meka Aragon is a 60-year-old female past medical history of congestive heart failure and COPD who presents with left upper extremity pain. She states that at around 2300 she was using her left arm to talk to her son on the phone when she had sudden onset of 3 episodes of dull achy pain over her left tricep. She denies trauma prior to onset. She states that immediately following this she stood up and walked into the other room and had an episode of dyspnea, but states that this is a normal issue for her. Patient affirms having bilateral lower extremity swelling which is chronic and unchanged. Her son consulted a trusted family friend who advised her to come to the emergency department as complaints could be cardiac in nature. She denies any current pain and did not experience any chest pain, nausea/vomiting, or diaphoresis during this event. She denies all other complaints. The patient is currently taking meloxicam for chronic arthritis. Review of Systems: Review of Systems: Constitutional: Denies fever or chills Eyes: Denies redness or eye pain HENT: Denies nasal congestion or sore throat Respiratory: Denies cough or shortness of breath Cardiovascular: Denies chest pain or palpitations GI: Denies abdominal pain, nausea, or vomiting : Denies dysuria or hematuria Musculoskeletal: Denies back pain or joint pain; affirms upper extremity pain Integument: Denies rash or skin lesions Neurologic: Denies headache, focal weakness or sensory changes Complete systems were reviewed and found to be within normal limits, except as documented in this note. Allergies: Allergies: Allergies Coded Allergies Type Severity Reaction Last Updated Verified metronidazole Allergy Intermediate 09/22/16 Yes Physical Exam: PE: Constitutional: Well developed, well nourished, no acute distress, non-toxic appearance HENT: Normocephalic, atraumatic Eyes: PERRL, EOMI, conjunctiva normal, no discharge Neck: Normal range of motion, no tenderness, supple Lungs & Thorax: No respiratory distress, equal chest rise and fall Abdomen: Soft, no tenderness Skin: Warm, dry, no erythema, no rash Back: No tenderness, no CVA tenderness Extremities: Trace lower extremity edema bilaterally, chronic; left upper extremity: Minimal reproducible tenderness over the distal tricep, slightly diminished extension at the shoulder joint but active range of motion otherwise full Neurologic: Alert and oriented X 3, normal motor function, normal sensory function, no focal deficits noted Psychologic: Affect normal, judgment normal EKG: EKG: @0337 NSR at 74ms, QRS 74ms, QT/QTc 382/429ms Course & Med Decision Making: Course & Med Decision Making Patient presents with left upper extremity pain as described above. Given the patient's clinical presentation, strong suspicion for muscular etiology. However, given the patient's risk factors a screening EKG is performed with benign findings. Patient is currently taking meloxicam for chronic arthritis pain, so she will be given Toradol 15 mg IM prior to discharge and given instructions to follow-up with primary care physician. Renae Disclaimer: Renae Disclaimer: This electronic medical record was generated, in whole or in part, using a voice recognition dictation system. Departure Departure Impression: Primary Impression: Left arm pain Additional Impression: Peripheral edema Disposition: 01 DC HOME SELF CARE/HOMELESS Condition: STABLE Referrals: JANAY LORA MD (PCP) Patient Instructions: Muscle Strain, Ahat-mt-[id number], Peripheral Edema Additional Instructions: Please follow closely with your doctor for further management of your chronic leg swelling. You may need adjustment of your medications. You may also use compression stockings to help with your swelling. You also may need to elevate your legs. JHONNY SON DO Feb 23, 2020 03:24
[2020-02-23] MEDS ORDERED: KETOROLAC 30 MG/ML VIAL. ONE (03:50)
[2020-02-23] MEDS ORDERED: KETOROLAC 15 MG/ML VIAL. IM ONE ×2 (04:00)
--- NOTE | 2020-02-23 11:01 | EKG ---
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
== END 2020-02-23 03:52 | disposition home or self-care (01) ==
LOC: ER 02:55
DX: R60.0 Localized edema (principal); I11.0 Hypertensive heart disease with heart failure; I50.9 Heart failure, unspecified; J44.9 Chronic obstructive pulmonary disease, unspecified; E11.9 Type 2 diabetes mellitus without complications; Z88.3 Allergy status to other anti-infective agents
CPT/HCPCS: 93005; 99283